=== PATIENT | male | born 1990 | race Caucasian/White ===

== ENCOUNTER 2021-02-26 18:12 | Emergency (ER) | payer OTHER, SELFPAY ==
[2021-02-26 18:33] VITALS: BP 133/89; PULSE 95; RESP 18; TEMP 36.6; O2SAT 99
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
--- NOTE | 2021-02-26 19:15 | PC.NURSE ---
[facility] here
== END 2021-02-26 19:27 | disposition short-term general hospital (02) ==
PROVIDERS: Emergency Provider Nurse Practitioner
DX: S39.91XA Unspecified injury of abdomen, initial encounter (principal); S79.911A Unspecified injury of right hip, initial encounter; F17.210 Nicotine dependence, cigarettes, uncomplicated; S20.411A Abrasion of right back wall of thorax, initial encounter; V86.56XA Driver of dirt bike or motor/cross bike injured in nontraffic accident, initial encounter
CPT/HCPCS: 99285; L0140

== ENCOUNTER 2021-10-04 18:37 | Emergency (ER) | payer OTHER, SELFPAY ==
--- NOTE | ~2021-10-04 | XR_ITS ---
EXAMINATION: XR shoulder LT min 2V INDICATION: Left shoulder pain, history of dislocation TECHNIQUE: Four views of the left shoulder are submitted. COMPARISON: None FINDINGS: Normal alignment. No acute fracture is identified. There is a chronic Hill-Sachs deformity in the posterolateral aspect of the humeral head. Also noted is chronic heterotopic ossification in t he subacromial/subdeltoid bursa. Glenohumeral and acromioclavicular joint spaces are normal. Soft tis sues are unremarkable. IMPRESSION: 1. No acute osseous abnormality. Reviewed, dictated and finalized at location F. 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
[2021-10-04 18:50] VITALS: BP 125/90; PULSE 108; RESP 17; TEMP 36.4; O2SAT 100
[2021-10-04] MEDS: HYDROcodone/acetaminophen (*CRX) 5-325 MG TABLET 1 TAB PO (19:05)
--- NOTE | 2021-10-04 19:29 | ED.GENADULT ---
HPI - General Adult General Chief complaint: Extremity Injury, Upper Stated complaint: dislocated my arm Time Seen by Provider: 10/04/21 18:47 Source: patient Mode of arrival: ambulatory Limitations: no limitations History of Present Illness HPI narrative: Patient is a 31-year-old male who presents with left shoulder dislocation notes history of dislocations patient notes aching pain of the left shoulder worse with activity and movement patient notes that he was wrestling with an individual when it occurred presents with obvious deformity notes moderate aching pain worse with activity and movement Related Data Home Medications Medication Instructions Recorded Confirmed No Home Medications 10/04/21 10/04/21 Allergies Allergy/AdvReac Type Severity Reaction Status Date / Time PEPTO BISMOL Allergy Unknown Unknown Uncoded 10/04/21 18:49 Review of Systems Review of Systems: CONSTITUTIONAL: Denies fever, chills, or sweats. CARDIOVASCULAR: Denies chest pain RESPIRATORY: Denies cough or dyspnea. GASTROINTESTINAL: Denies abdominal pain, nausea SKIN: Denies bruising or swelling MUSCULOSKELETAL: Denies back pain, joint pain, or myalgia. NEUROLOGIC: Denies headache, numbness, dizziness, or weakness. [facility] Surgical History Surgical History History of orthopedic surgery Family History Family History (Updated 02/26/21 @ 19:06 by Lindsay Lantigua, NEIGHBORHOOD WORKER) Other No significant family history Social History Social History Smoking status: Current every day smoker Tobacco type: cigarettes Alcohol intake: current Alcohol use details: occasional Substance use: never Gender identity (if verbalized by the patient): Male Exam Narrative: GENERAL: Well-appearing, well-nourished, and in no acute distress. HEAD: Normocephalic, atraumatic. EYES: PERRLA and EOMI. ENT: Nares clear, no rhinorrhea or epistaxis. Mucous membranes moist. Oropharynx without tonsillar hypertrophy exudate or other lesions. EXTREMITIES: Normal range of motion. No edema. SKIN: Warm, dry, no rash. NEURO: No focal deficits. Alert and oriented x3. Neurovascularly intact. Capillary refill less than 2 seconds PSYCH: Normal mood and affect. Course Course Emergency Course: Patient in the room aware of case findings treatment plan diagnosis shoulder was reduced x-rays were obtained he will be placed in a sling and sent back to primary care and orthopedic surgery for further evaluation ABCs and vital signs intact stable Vital Signs Vital signs: Vital Signs Temperature 97.5 F L 10/04/21 18:50 Pulse Rate 108 H 10/04/21 18:50 Respiratory Rate 17 10/04/21 18:50 Blood Pressure 125/90 10/04/21 18:50 Pulse Oximetry 100 10/04/21 18:50 Temperature 97.5 F L 10/04/21 18:50 Pulse Rate 108 H 10/04/21 18:50 Respiratory Rate 17 10/04/21 18:50 Blood Pressure 125/90 10/04/21 18:50 Pulse Oximetry 100 10/04/21 18:50 Procedures Orthopedic Joint Reduction Joint #1: Orthopedic Joint Reduction Date: 10/04/21 Orthopedic Joint Reduction Time: 19:34 Time Out Performed: Yes Side: left Joint Reduction Location: shoulder Analgesia: none Shoulder Technique Used (if applicable): Milch Technique used: direct manipulation Post-reduction neuro exam: intact Post-reduction vascular: intact Post Reduction X-Ray Obtained: Yes Post Reduction X-Ray Results: reduced Splint Applied: Yes Patient Tolerated Procedure: well Additional Comments: Patient placed in sling post procedure Medical Decision Making MDM Narrative Medical decision making narrative: Patients injury or pain is consistent with musculoskeletal etiology. No signs of neurological or vascular compromise on exam. Compartments and tisues are soft without signs of compartment syndrom
[2021-10-04 19:30] VITALS: BP 136/84; PULSE 84; RESP 14; O2SAT 98
== END 2021-10-04 19:35 | disposition home or self-care (01) ==
PROVIDERS: Emergency Provider Emergency Medicine
DX: M24.412 Recurrent dislocation, left shoulder (principal); F17.210 Nicotine dependence, cigarettes, uncomplicated
CPT/HCPCS: 23650; 73030; 99285; A4565; A9270

== ENCOUNTER 2024-05-15 10:36 | Emergency (ER) | payer OTHER, SELFPAY ==
[2024-05-15] VITALS (13 sets, daily range): BP systolic 109–121; BP diastolic 76–86; PULSE 59–79; RESP 13–22; TEMP 36.4–36.6; O2SAT 97–100
--- NOTE | 2024-05-15 11:01 | ECG_ITS ---
Test Date: 2024-05-15 11:03:18 Measurements Intervals [place] Rate: 71 P: 41 [place]: 182 QRS: 65 QRSD: 82 T: 37 QT: 350 QTc: 383 Interpretive Statements SINUS RHYTHM POSSIBLE RIGHT VENTRICULAR CONDUCTION DELAY [RSR (QR) IN V1/V2] NONSPECIFIC T-WAVE ABNORMALITY No previous ECG available for comparison Electronically Signed On 05-16-2024 10:32:22 CDT by Ana Dubose M.D.
[2024-05-15 12:44] LABS: Basophils Absolute Auto 0.1 K/mm3 (0.0-0.1); Basophils Percent Auto 0.8 % (0.2-1.2); Eosinophils Absolute Auto 0.2 K/mm3 (0-0.3); Eosinophils Percent Auto 2.1 % (0-4.4); Hematocrit 48.7 % (42.0-52.0); Immature Granulocyte Absolute 0.03 K/mm3 (0.00-0.031); Immature Granulocyte Percent A 0.3 % (0-0.5); Lymphocytes Absolute Auto 3.12 K/mm3 (0.9-3.2); Lymphocytes Percent Auto 30.5 % (18.3-44.2); Mean Corpuscular HGB Conc 34.9 g/dl (32-36); Mean Corpuscular Volume 88.7 fl (80-100); Mean Platelet Volume 10.3 fl (7.4-10.4); Monocytes Absolute Auto 0.7 K/mm3 (0.1-0.6); Monocytes Percent Auto 7.2 % (2.6-8.5); Neutrophils Absolute Auto 6.1 K/mm3 (1.3-6.7); Neutrophils Percent Auto 59.1 % (45.5-73.1); Platelet Count Result 271 k/mm3 (150-375); Red Blood Count 5.49 M/mm3 (4.6-6.20); Red Cell Distribution Width 12.3 % (11.5-14.5); White Blood Count 10.2 K/mm3 (4.5-10.0)
[2024-05-15] MEDS: MECLIZINE HCL 25 MG TABLET PO (12:46)
[2024-05-15] MEDS: SODIUM CHLORIDE 0.9% IV 1,000 ML 999 ML IV CONT (12:47)
[2024-05-15 13:07] LABS: Alanine Aminotransferase 27 U/L (6-50); Albumin Level 4.4 g/dL (3.5-5.1); Alkaline Phosphatase 71 U/L (38-126); Anion Gap 9 mmol/L (4-12); Aspartate Amino Transferase 24 U/L (17-59); Bilirubin,Total 0.4 mg/dL (0.2-1.3); Blood Urea Nitrogen 8 mg/dL (9-20); Calcium 9.1 mg/dL (8.4-10.2); Carbon Dioxide 26 mmol/L (22-30); Chloride 103 mmol/L (98-107); Estimated CRCL calculation 90 ml/min; Estimated Glomerular Filt Rate > 60; Glucose 89 mg/dL (65-110); Potassium 3.9 mmol/L (3.4-5.0); Sodium 138 mmol/L (137-145)
--- NOTE | 2024-05-15 14:09 | ED.GENADULT ---
HPI - General Adult General Chief complaint: Dizziness Stated complaint: dizziness Time Seen by Provider: 05/15/24 12:02 History of Present Illness HPI narrative: Patient is a 34-year-old male who presents ER with dizziness. Began this morning. Spinning in nature. Worse with laying flat. Give some balance issues with walking and when turning his head. He also has had some mild nausea. He has had similar symptoms in the past. Denies arm or leg weakness. No numbness. Symptoms are better with sitting still. Related Data Allergies Allergy/AdvReac Type Severity Reaction Status Date / Time PEPTO BISMOL Allergy Unknown Unknown Uncoded 10/04/21 18:49 Review of Systems Review of Systems: All systems reviewed & are unremarkable except as noted in HPI and below Constitutional: Constitutional: Reports no additional constitutional complaints ENT: Reports dizziness and Denies nasal congestion Cardiovascular: Cardiovascular: Reports no additional cardiovascular complaints Respiratory: Respiratory: Reports no additional respiratory complaints Gastrointestinal: Gastrointestinal: Reports no additional gastrointestinal complaints [facility] Past Medical History Medical History (Updated 05/15/24 @ 14:13 by John Moura MD) Healthy adult male Surgical History Surgical History History of orthopedic surgery Family History Family History (Updated 02/26/21 @ 19:06 by Lindsay Lantigua, CONING MACHINE OPERATOR) Other No significant family history Social History Social History Smoking status: Current every day smoker Tobacco type: cigarettes Alcohol intake: current Alcohol use details: occasional Substance use: never Living arrangements: with family Occupation/Education: occupation Gender identity (if verbalized by the patient): Male Exam Narrative: GENERAL: Well-appearing, well-nourished, and in no acute distress. HEAD: Normocephalic, atraumatic. ENT: Mucous membranes moist. TMs normal bilaterally CHEST: Clear to auscultation. No respiratory distress. HEART: Regular rate and rhythm. Normal peripheral pulses. EXTREMITIES: Normal range of motion. No edema. SKIN: Warm, dry, no rash. NEURO: Alert and oriented x3. PSYCH: Normal mood and affect. Course Course Emergency Course: patient resting comfortably. Informed of lab results. Dizziness improved with meclizine and IV fluids. Appropriate for discharge home. discussed diagnosis and treatment time. Vital Signs Vital signs: Vital Signs Temperature 97.6 F 05/15/24 10:38 Pulse Rate 79 05/15/24 10:38 Respiratory Rate 14 05/15/24 10:38 Blood Pressure 121/77 05/15/24 10:38 Pulse Oximetry 99 05/15/24 10:38 Oxygen Delivery Room Air 05/15/24 10:38 Temperature 97.9 F 05/15/24 12:02 Pulse Rate 70 05/15/24 12:31 Respiratory Rate 14 05/15/24 12:02 Blood Pressure 117/82 05/15/24 12:31 Pulse Oximetry 100 05/15/24 12:02 Oxygen Delivery Room Air 05/15/24 12:02 Medical Decision Making Vital Signs Vital Signs: Vital Signs Temperature 97.6 F 05/15/24 10:38 Pulse Rate 79 05/15/24 10:38 Respiratory Rate 14 05/15/24 10:38 Blood Pressure 121/77 05/15/24 10:38 Pulse Oximetry 99 05/15/24 10:38 Oxygen Delivery Room Air 05/15/24 10:38 Temperature 97.9 F 05/15/24 12:02 Pulse Rate 70 05/15/24 12:31 Respiratory Rate 14 05/15/24 12:02 Blood Pressure 117/82 05/15/24 12:31 Pulse Oximetry 100 05/15/24 12:02 Oxygen Delivery Room Air 05/15/24 12:02 Lab Data 05/15/24 12:36 05/15/24 12:36 Labs: Lab Results 05/15/24 Range/Units 12:36 WBC 10.2 H (4.5-10.0) K/mm3 RBC 5.49 (4.6-6.20) M/mm3 Hgb 17.0 (14.0-18.0) g/dL Hct 48.7 (42.0-52.0) % MCV 88.7 (80-100) fl MCH 31.0 (26-34) pg MCHC 34.9 (32-36) g/dl
== END 2024-05-15 14:29 | disposition home or self-care (01) ==
PROVIDERS: Emergency Provider Emergency Medicine
DX: R42 Dizziness and giddiness (principal); F17.210 Nicotine dependence, cigarettes, uncomplicated
CPT/HCPCS: 36415; 80053; 85025; 93005; 96360; 99283; A9270; J7030

== ENCOUNTER 2024-05-22 04:23 | Emergency (ER) | payer OTHER, SELFPAY ==
[2024-05-22 04:27] VITALS: BP 137/92; PULSE 75; RESP 15; TEMP 37.1; O2SAT 100
[2024-05-22] MEDS: ALPRAZolam (*CRX) 0.5 MG TABLET PO (05:57)
--- NOTE | 2024-05-22 05:57 | ED.ANXIETY ---
HPI - Anxiety General Chief Complaint: Anxiety Stated Complaint: anxiety Time Seen by Provider: 05/22/24 04:30 History of Present Illness HPI narrative: Patient is a 34-year-old male who presents to the emergency department this evening complaining of difficulty catching his breath and feeling as though he is having a panic attack. Patient admits that he does have a history of anxiety and panic attacks but has not been taking any medications for them. Patient states that they used to be in frequent, happening approximately once or twice a year max but since his father approximately 1 month ago he has noticed that he has been having these episodes frequently. Patient states that his father also suffered from anxiety and 1 point did give him a Xanax because he was having severe anxiety/panic attack and patient states that has helped him. Denies ever being on any additional medications for anxiety or depression. Patient admits that he has kids at home that are sick with some upper respiratory virus and believes that this could be contributing to his symptoms. Denies any chest pain, any fevers or chills, any URI symptoms including cough, runny nose, or sore throat. No additional symptoms or concerns at this time. Related Data Allergies Allergy/AdvReac Type Severity Reaction Status Date / Time PEPTO BISMOL Allergy Unknown Unknown Uncoded 10/04/21 18:49 Review of Systems Review of Systems: All systems are reviewed and are negative unless stated otherwise in the HPI. [facility] Past Medical History Medical History Healthy adult male Surgical History Surgical History History of orthopedic surgery Family History Family History Other No significant family history Social History Social History Smoking status: Current every day smoker Tobacco type: cigarettes Alcohol intake: current Alcohol use details: occasional Substance use: never Living arrangements: with family Occupation/Education: occupation Gender identity (if verbalized by the patient): Male Exam Narrative: General: Alert, awake, afebrile, anxious. HEENT: PERRL, no rhinorrhea, no post nasal drip, oropharynx clear. Cardiovascular: Regular rate and rhythm, no murmurs, rubs or gallops, no peripheral edema. Respiratory: Clear to auscultation bilaterally, no tachypnea, no wheezing, no rhonchi, no rubs, no respiratory distress. Abdomen: Soft, nontender, nondistended, no rebound, no guarding, no peritoneal signs. Musculoskeletal: No joint swelling or deformity, normal muscle tone. Skin: No rashes or petechia, no signs of infection. Psychiatric: Very anxious, normal behavior and judgment for situation. Neurological: Alert and oriented to person, place, and time. Follows all commands. No focal deficits, speech is clear and fluent. Course Vital Signs Vital signs: Vital Signs Temperature 98.7 F 05/22/24 04:27 Pulse Rate 75 05/22/24 04:27 Respiratory Rate 15 05/22/24 04:27 Blood Pressure 137/92 H 05/22/24 04:27 Pulse Oximetry 100 05/22/24 04:27 Oxygen Delivery Room Air 05/22/24 04:27 Temperature 98.7 F 05/22/24 04:27 Pulse Rate 77 05/22/24 05:58 Respiratory Rate 20 05/22/24 05:58 Blood Pressure 119/78 05/22/24 05:58 Pulse Oximetry 98 05/22/24 05:58 Oxygen Delivery Room Air 05/22/24 04:27 MDM - Anxiety MDM Narrative Medical decision making narrative: The patient was evaluated by myself in the emergency department. History is obtained from patient who is an independent historian and physical exam was performed. External medical records were reviewed at this time. Vital signs were reviewed and patient was noted to be satting 100% on room air. Patient was administered an
[2024-05-22 05:58] VITALS: BP 119/78; PULSE 77; RESP 20; O2SAT 98
== END 2024-05-22 05:57 | disposition home or self-care (01) ==
PROVIDERS: Emergency Provider Emergency Medicine
DX: F41.0 Panic disorder [episodic paroxysmal anxiety] (principal); F17.210 Nicotine dependence, cigarettes, uncomplicated
CPT/HCPCS: 99283; A9270

== ENCOUNTER 2024-11-24 04:09 | Emergency (ER) | payer OTHER, SELFPAY ==
[2024-11-24 04:10] VITALS: BP 150/93; PULSE 87; RESP 16; TEMP 36.7; O2SAT 100
--- OUTSIDE RECORDS SUMMARY | 2024-11-24 04:11 | XMS_ITS | Patient Health Summary ---
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 lumbar spine were obtained by the technologist from a concurrently performed body CT and sent to the workstation for review. COMPARISON: No prior study is available for comparison at the time of this dictation. FINDINGS: Head: No acute intra- or extra-axial fluid collections are identified. The ventricles are of normal size, shape, and morphology. The basilar cisterns are patent. No mass effect or midline shift is seen. The paul-white matter differentiation is normal. No acute calvarial fracture is identified.. The orbits appear normal. There is mild paranasal sinus disease. There are ryan bullosa of the middle turbinates bilaterally. The nasal septum is deviated to the right. There are dental caries and periapical lucencies, partially imaged. The mastoid air cells are clear. Minimal irregularity along the right parietal scalp. Cervical spine: The alignment is maintained. Vertebral bodies are normal in height without evidence of acute fracture. The craniocervical junction is normal. There is mild degenerative disc disease. Disc osteophyte complexes are seen at multiple levels, worse at C5-C6 and C6-C7. No significant central canal stenosis is seen. The facets appear normal. There are varying degrees of mild uncovertebral joint osteoarthritis No significant neural foraminal stenosis is seen. There is paraseptal emphysema in the lung apices. Thoracic spine: The alignment is maintained. Vertebral bodies are normal in height without evidence of acute fracture. The intervertebral discs appear normal. No central canal stenosis is seen. The facets appear normal. No neural foraminal stenosis is seen. No soft tissue abnormality is identified. Lumbar spine: The alignment is maintained. Vertebral bodies are normal in height without evidence of acute fracture. There is minimal diffuse disc bulge at multiple levels. No central canal stenosis is seen. The facets appear normal. No neural foraminal stenosis is seen. No soft tissue abnormality is identified. Procedure Note Darwin Tyler MD - 02/27/2021 CT HEAD WO CONTRAST, CT LUMBAR SPINE WO CONTRAST, CT THORACIC SPINE WO CONTRAST, CT CERVICAL SPINE WO CONTRAST DATE: 02/26/2021 8:35 PM EXAMINATION: 1.Computed tomography (CT) of the head without contrast 2.CT of the cervical spine without contrast 3.CT of the thoracic spine without contrast 4.CT of the lumbar spine without contrast HISTORY: Trauma TECHNIQUE: CT of the head and cervical spine was performed without contrast according to standard protocol. Reformatted axial, sagittal,and coronal images of the thoracic and lumbar spine were obtained by the technologist from a concurrently performed body CT and sent to the workstation for review. COMPARISON: No prior study is available for comparison at the time ofthis dictation. FINDINGS: Head: No acute intra- or extra-axial fluid collections are identified. The ventricles are of normal size, shape, and morphology. The basilarcisterns are patent. No mass effect or midline shift is seen. The paul-whitematter differentiation is normal. No acute calvarial fracture is identified..The orbits appear normal. There is mild paranasal sinus disease. There are ryan bullosa of the middle turbinates bilaterally. The nasal septum is deviated to the right. There are dental caries and periapical lucencies, partially imaged. The mastoid air cells are clear. Minimal irregularity along the right parietal scalp. Cervical spine: The alignment is maintained. Vertebral bodies are normal in heightwithout evidence of acute fracture. The craniocervical junction is normal. There is mild degenerative disc disease. Disc osteophyte complexes are seen at multiple levels, worse at C5-C6 and C6-C7. No significant central canal stenosis is seen. The facets appear normal. There are varying degrees of mild uncovertebral joint osteoarthritis No significant neural foraminal stenosis is seen. There is paraseptal emphysema in the lung apices. Thoracic spine: The alignment is maintained. Vertebral bodies are normal in heightwithout evidence of acute fracture. The intervertebral discs appear normal. No central canal stenosis is seen. The facets appear normal. No neural foraminal stenosis is seen. No soft tissue abnormality is identified. Lumbar spine: The alignment is maintained. Vertebral bodies are normal in heightwithout evidence of acute fracture. There is minimal diffuse disc bulge at multiple levels. No central canal stenosis is seen. The facets appear normal. No neural foraminal stenosis is seen. No soft tissue abnormality is identified. IMPRESSION: 1.No acute intracranial hemorrhage, mass effect, or midline shift. 2.No evidence of acute fracture in the cervical, thoracic, or lumbarspine. This report was electronically signed by DARWIN TYLER on02/27/2021 7:52 AM . He Cho MD CT ORDERABLES * CT CERVICAL SPINE WO CONTRAST - C-Spine Trauma, Spine fracture (02/26/2021 8:34 PM CDT) Anatomical Region Laterality Modality Spine Computed Tomogra phy 02/27/2021 7:44 AM CDT Impressions 02/27/2021 7:52 AM CDT IMPRESSION: 1.No acute intracranial hemorrhage, mass effect, or midline shift. 2.No evidence of acute fracture in the cervical, thoracic, or lumbar spine. This report was electronically signed by DARWIN TYLER on 02/27/2021 7:52 AM . Narrative 02/27/2021 7:[address] HEAD WO CONTRAST, CT LUMBAR SPINE WO CONTRAST, CT THORACIC SPINE WO CONTRAST, CT CERVICAL SPINE WO CONTRAST DATE: 02/26/2021 8:35 PM EXAMINATION: 1.Computed tomography (CT) of the head without contrast 2.CT of the cervical spine without contrast 3.CT of the thoracic spine without contrast 4.CT of the lumbar spine without contrast HISTORY: Trauma TECHNIQUE: CT of the head and cervical spine was performed without contrast according to standard protocol. Reformatted axial, sagittal, and coronal images of the thoracic and lumbar spine were obtained by the technologist from a concurrently performed body CT and sent to the workstation for review. COMPARISON: No prior study is available for comparison at the time of this dictation. FINDINGS: Head: No acute intra- or extra-axial fluid collections are identified. The ventricles are of normal size, shape, and morphology. The basilar cisterns are patent. No mass effect or midline shift is seen. The paul-white matter differentiation is normal. No acute calvarial fracture is identified.. The orbits appear normal. There is mild paranasal sinus disease. There are ryan bullosa of the middle turbinates bilaterally. The nasal septum is deviated to the right. There are dental caries and periapical lucencies, partially imaged. The mastoid air cells are clear. Minimal irregularity along the right parietal scalp. Cervical spine: The alignment is maintained. Vertebral bodies are normal in height without evidence of acute fracture. The craniocervical junction is normal. There is mild degenerative disc disease. Disc osteophyte complexes are seen at multiple levels, worse at C5-C6 and C6-C7. No significant central canal stenosis is seen. The facets appear normal. There are varying degrees of mild uncovertebral joint osteoarthritis No significant neural foraminal stenosis is seen. There is paraseptal emphysema in the lung apices. Thoracic spine: The alignment is maintained. Vertebral bodies are normal in height without evidence of acute fracture. The intervertebral discs appear normal. No central canal stenosis is seen. The facets appear normal. No neural foraminal stenosis is seen. No soft tissue abnormality is identified. Lumbar spine: The alignment is maintained. Vertebral bodies are normal in height without evidence of acute fracture. There is minimal diffuse disc bulge at multiple levels. No central canal stenosis is seen. The facets appear normal. No neural foraminal stenosis is seen. No soft tissue abnormality is identified. Procedure Note Darwin Tyler MD - 02/27/2021 CT HEAD WO CONTRAST, CT LUMBAR SPINE WO CONTRAST, CT THORACIC SPINE WO CONTRAST, CT CERVICAL SPINE WO CONTRAST DATE: 02/26/2021 8:35 PM EXAMINATION: 1.Computed tomography (CT) of the head without contrast 2.CT of the cervical spine without contrast 3.CT of the thoracic spine without contrast 4.CT of the lumbar spine without contrast HISTORY: Trauma TECHNIQUE: CT of the head and cervical spine was performed without contrast according to standard protocol. Reformatted axial, sagittal,and coronal images of the thoracic and lumbar spine were obtained by the technologist from a concurrently performed body CT and sent to the workstation for review. COMPARISON: No prior study is available for comparison at the time ofthis dictation. FINDINGS: Head: No acute intra- or extra-axial fluid collections are identified. The ventricles are of normal size, shape, and morphology. The basilarcisterns are patent. No mass effect or midline shift is seen. The paul-whitematter differentiation is normal. No acute calvarial fracture is identified..The orbits appear normal. There is mild paranasal sinus disease. There are ryan bullosa of the middle turbinates bilaterally. The nasal septum is deviated to the right. There are dental caries and periapical lucencies, partially imaged. The mastoid air cells are clear. Minimal irregularity along the right parietal scalp. Cervical spine: The alignment is maintained. Vertebral bodies are normal in heightwithout evidence of acute fracture. The craniocervical junction is normal. There is mild degenerative disc disease. Disc osteophyte complexes are seen at multiple levels, worse at C5-C6 and C6-C7. No significant central canal stenosis is seen. The facets appear normal. There are varying degrees of mild uncovertebral joint osteoarthritis No significant neural foraminal stenosis is seen. There is paraseptal emphysema in the lung apices. Thoracic spine: The alignment is maintained. Vertebral bodies are normal in heightwithout evidence of acute fracture. The intervertebral discs appear normal. No central canal stenosis is seen. The facets appear normal. No neural foraminal stenosis is seen. No soft tissue abnormality is identified. Lumbar spine: The alignment is maintained. Vertebral bodies are normal in heightwithout evidence of acute fracture. There is minimal diffuse disc bulge at multiple levels. No central canal stenosis is seen. The facets appear normal. No neural foraminal stenosis is seen. No soft tissue abnormality is identified. IMPRESSION: 1.No acute intracranial hemorrhage, mass effect, or midline shift. 2.No evidence of acute fracture in the cervical, thoracic, or lumbarspine. This report was electronically signed by DARWIN TYLER on02/27/2021 7:52 AM . He Cho MD CT ORDERABLES * CT HEAD WO CONTRAST - Head Trauma, CSF leak, mental status changes (02/26/2021 8:34 PM CDT) Anatomical Region Laterality Modality Head Computed Tomogra phy 02/27/2021 7:44 AM CDT Impressions 02/27/2021 7:52 AM CDT IMPRESSION: 1.No acute intracranial hemorrhage, mass effect, or midline shift. 2.No evidence of acute fracture in the cervical, thoracic, or lumbar spine. This report was electronically signed by DARWIN TYLER on 02/27/2021 7:52 AM . Narrative 02/27/2021 7:[address] HEAD WO CONTRAST, CT LUMBAR SPINE WO CONTRAST, CT THORACIC SPINE WO CONTRAST, CT CERVICAL SPINE WO CONTRAST DATE: 02/26/2021 8:35 PM EXAMINATION: 1.Computed tomography (CT) of the head without contrast 2.CT of the cervical spine without contrast 3.CT of the thoracic spine without contrast 4.CT of the lumbar spine without contrast HISTORY: Trauma TECHNIQUE: CT of the head and cervical spine was performed without contrast according to standard protocol. Reformatted axial, sagittal, and coronal images of the thoracic and lumbar spine were obtained by the technologist from a concurrently performed body CT and sent to the workstation for review. COMPARISON: No prior study is available for comparison at the time of this dictation. FINDINGS: Head: No acute intra- or extra-axial fluid collections are identified. The ventricles are of normal size, shape, and morphology. The basilar cisterns are patent. No mass effect or midline shift is seen. The paul-white matter differentiation is normal. No acute calvarial fracture is identified.. The orbits appear normal. There is mild paranasal sinus disease. There are ryan bullosa of the middle turbinates bilaterally. The nasal septum is deviated to the right. There are dental caries and periapical lucencies, partially imaged. The mastoid air cells are clear. Minimal irregularity along the right parietal scalp. Cervical spine: The alignment is maintained. Vertebral bodies are normal in height without evidence of acute fracture. The craniocervical junction is normal. There is mild degenerative disc disease. Disc osteophyte complexes are seen at multiple levels, worse at C5-C6 and C6-C7. No significant central canal stenosis is seen. The facets appear normal. There are varying degrees of mild uncovertebral joint osteoarthritis No significant neural foraminal stenosis is seen. There is paraseptal emphysema in the lung apices. Thoracic spine: The alignment is maintained. Vertebral bodies are normal in height without evidence of acute fracture. The intervertebral discs appear normal. No central canal stenosis is seen. The facets appear normal. No neural foraminal stenosis is seen. No soft tissue abnormality is identified. Lumbar spine: The alignment is maintained. Vertebral bodies are normal in height without evidence of acute fracture. There is minimal diffuse disc bulge at multiple levels. No central canal stenosis is seen. The facets appear normal. No neural foraminal stenosis is seen. No soft tissue abnormality is identified. Procedure Note Darwin Tyler MD - 02/27/2021 CT HEAD WO CONTRAST, CT LUMBAR SPINE WO CONTRAST, CT THORACIC SPINE WO CONTRAST, CT CERVICAL SPINE WO CONTRAST DATE: 02/26/2021 8:35 PM EXAMINATION: 1.Computed tomography (CT) of the head without contrast 2.CT of the cervical spine without contrast 3.CT of the thoracic spine without contrast 4.CT of the lumbar spine without contrast HISTORY: Trauma TECHNIQUE: CT of the head and cervical spine was performed without contrast according to standard protocol. Reformatted axial, sagittal,and coronal images of the thoracic and lumbar spine were obtained by the technologist from a concurrently performed body CT and sent to the workstation for review. COMPARISON: No prior study is available for comparison at the time ofthis dictation. FINDINGS: Head: No acute intra- or extra-axial fluid collections are identified. The ventricles are of normal size, shape, and morphology. The basilarcisterns are patent. No mass effect or midline shift is seen. The paul-whitematter differentiation is normal. No acute calvarial fracture is identified..The orbits appear normal. There is mild paranasal sinus disease. There are ryan bullosa of the middle turbinates bilaterally. The nasal septum is deviated to the right. There are dental caries and periapical lucencies, partially imaged. The mastoid air cells are clear. Minimal irregularity along the right parietal scalp. Cervical spine: The alignment is maintained. Vertebral bodies are normal in heightwithout evidence of acute fracture. The craniocervical junction is normal. There is mild degenerative disc disease. Disc osteophyte complexes are seen at multiple levels, worse at C5-C6 and C6-C7. No significant central canal stenosis is seen. The facets appear normal. There are varying degrees of mild uncovertebral joint osteoarthritis No significant neural foraminal stenosis is seen. There is paraseptal emphysema in the lung apices. Thoracic spine: The alignment is maintained. Vertebral bodies are normal in heightwithout evidence of acute fracture. The intervertebral discs appear normal. No central canal stenosis is seen. The facets appear normal. No neural foraminal stenosis is seen. No soft tissue abnormality is identified. Lumbar spine: The alignment is maintained. Vertebral bodies are normal in heightwithout evidence of acute fracture. There is minimal diffuse disc bulge at multiple levels. No central canal stenosis is seen. The facets appear normal. No neural foraminal stenosis is seen. No soft tissue abnormality is identified. IMPRESSION: 1.No acute intracranial hemorrhage, mass effect, or midline shift. 2.No evidence of acute fracture in the cervical, thoracic, or lumbarspine. This report was electronically signed by DARWIN TYLER on02/27/2021 7:52 AM . He Cho MD CT ORDERABLES * XR PELVIS 1 OR 2VW (02/26/2021 8:07 PM CDT) Anatomical Region Laterality Modality Pelvis Radiographic Heather ging 02/27/2021 7:51 AM CDT Impressions 02/27/2021 10:33 AM CDT IMPRESSION: No acute fracture or dislocation identified. Benign-appearing lesion in the right ischium. Dictated by Min Mcdermott MD (vice president and portfolio manager). Dr. COLLEEN Rosas M.D. have personally reviewed and interpreted this examination/study. This report was electronically signed by COLLEEN FREIRE M.D. on 02/27/2021 10:33 AM . Narrative 02/27/2021 10:33 AM CDT EXAMINATION: XR PELVIS 1 OR 2VW HISTORY: Trauma Fracture suspected COMPARISON: No prior study is available for comparison. FINDINGS: No acute fracture is identified. Lytic/sclerotic lesion within the right ischium, further delineated on concurrent CT. The bilateral hip joint spaces are preserved. The pubic symphysis is intact. The osseous architecture and density are normal. The sacroiliac joints are normal. Procedure Note Colleen Freire MD - 02/27/2021 EXAMINATION: XR PELVIS 1 OR 2VW HISTORY: Trauma Fracture suspected COMPARISON: No prior study is available for comparison. FINDINGS: No acute fracture is identified. Lytic/sclerotic lesion within the right ischium, further delineated on concurrent CT. The bilateral hip joint spaces are preserved. The pubic symphysis is intact. The osseous architecture and density are normal. The sacroiliac joints are normal. IMPRESSION: No acute fracture or dislocation identified. Benign-appearing lesion in the right ischium. Dictated by Min Mcdermott MD (vice president and portfolio manager). Dr. COLLEEN Rosas M.D. have personally reviewed and interpreted this examination/study. This report was electronically signed by COLLEEN FREIRE M.D. on 02/27/2021 10:33 AM . He Cho MD DIAGNOSTIC IM AGING ORDERABLES * TYPE + SCREEN PANEL (02/26/2021 8:05 PM CDT) Antibody Screen NEG 9:33 PM CDT [facility] ABO Rh O POS 02/26/2021 9:33 PM CDT [facility] Blood Bank BLOOD SPECIMEN / Unknown Venipuncture / Unknown 02/26/2021 8:05 PM CDT 02/26/2021 8:46 PM CDT He Cho MD LAB - BLOOD B ANK ORDERABLES [facility] [address] [place] [address], [facility] [phone] * XR CHEST 1VW PORTABLE (02/26/2021 8:05 PM CDT) Anatomical Region Laterality Modality Chest Radiographic Heather ging 02/27/2021 7:52 AM CDT Impressions 02/27/2021 10:29 AM CDT FINDINGS/IMPRESSION: There is no focal consolidation, pleural effusion, or pneumothorax. The cardiomediastinal silhouette is normal. The visible bony thorax is intact. Dictated by Min Mcdermott MD (vice president and portfolio manager). Dr. COLLEEN Rosas M.D. have personally reviewed and interpreted this examination/study. This report was electronically signed by COLLEEN FREIRE M.D. on 02/27/2021 10:29 AM . Narrative 02/27/2021 10:29 AM CDT EXAMINATION: XR CHEST 1VW PORTABLE HISTORY: Trauma COMPARISON: No prior study is available for comparison. Procedure Note Colleen Freire MD - 02/27/2021 EXAMINATION: XR CHEST 1VW PORTABLE HISTORY: Trauma COMPARISON: No prior study is available for comparison. FINDINGS/IMPRESSION: There is no focal consolidation, pleural effusion, or pneumothorax. The cardiomediastinal silhouette is normal. The visible bony thorax isintact. Dictated by Min Mcdermott MD (vice president and portfolio manager). Dr. COLLEEN Rosas M.D. have personally reviewed and interpreted this examination/study. This report was electronically signed by COLLEEN FREIRE M.D. on 02/27/2021 10:29 AM . He Cho MD DIAGNOSTIC IM AGING ORDERABLES
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
[2024-11-24] MEDS: diazePAM (*CRX) 5 MG TABLET PO (04:42)
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
--- NOTE | 2024-11-24 05:02 | ED_ITS ---
HPI - General Adult General Chief complaint: Anxiety Stated complaint: Extreme panic attack Time Seen by Provider: 11/24/24 04:25 History of Present Illness HPI narrative: Patient is a 34-year-old gentleman presents emergency department with chief complaint of extreme anxiety. Patient reports he has prior history of anxiety reports he has been unable to calm down this evening patient states feels very shaky patient denies suicidal or homicidal ideation. Related Data Allergies Allergy/AdvReac Type Severity Reaction Status Date / Time PEPTO BISMOL Allergy Unknown Unknown Uncoded 11/24/24 04:09 Review of Systems Review of Systems: A 10 system review of systems was completed on the patient and is negative except for what is stated in the HPI. Nursing and ancillary documentation was reviewed. [facility] Past Medical History Medical History Healthy adult male Surgical History Surgical History History of orthopedic surgery Family History Family History Other No significant family history Social History Social History Smoking status: Current every day smoker Tobacco type: cigarettes Alcohol intake: current Alcohol use details: occasional Substance use: never Substance use type: does not use Living arrangements: with family Occupation/Education: occupation Gender identity (if verbalized by the patient): Male Exam Narrative: GENERAL: Well-appearing, well-nourished, and in no acute distress. HEAD: Normocephalic, atraumatic. EYES: PERRLA and EOMI. ENT: Nares clear, no rhinorrhea or epistaxis. Mucous membranes moist. NECK: Supple. CHEST: Clear to auscultation. No respiratory distress. HEART: Regular rate and rhythm. No murmur heard. Normal peripheral pulses. ABDOMEN: Soft, nontender, nondistended, normal active bowel sounds. EXTREMITIES: Normal range of motion. No edema. SKIN: Warm, dry, no rash. NEURO: No focal deficits. Alert and oriented x3. PSYCH: Anxious affect Course Vital Signs Vital signs: Vital Signs Temperature 36.7 C 11/24/24 04:10 Pulse Rate 87 11/24/24 04:10 Respiratory Rate 16 11/24/24 04:10 Blood Pressure 150/93 H 11/24/24 04:10 Pulse Oximetry 100 11/24/24 04:10 Oxygen Delivery Room Air 11/24/24 04:10 Temperature 36.7 C 11/24/24 04:10 Pulse Rate 87 11/24/24 04:10 Respiratory Rate 16 11/24/24 04:10 Blood Pressure 150/93 H 11/24/24 04:10 Pulse Oximetry 100 11/24/24 04:10 Oxygen Delivery Room Air 11/24/24 04:10 Medical Decision Making MDM Narrative Medical decision making narrative: The patient's vital signs are within normal limits. Patient shows no signs infection no signs of trauma patient given a dose of benzodiazepine a department will be referred to [facility]. Vital Signs Vital Signs: Vital Signs Temperature 36.7 C 11/24/24 04:10 Pulse Rate 87 11/24/24 04:10 Respiratory Rate 16 11/24/24 04:10 Blood Pressure 150/93 H 11/24/24 04:10 Pulse Oximetry 100 11/24/24 04:10 Oxygen Delivery Room Air 11/24/24 04:10 Temperature 36.7 C 11/24/24 04:10 Pulse Rate 87 11/24/24 04:10 Respiratory Rate 16 11/24/24 04:10 Blood Pressure 150/93 H 11/24/24 04:10 Pulse Oximetry 100 11/24/24 04:10 Oxygen Delivery Room Air 11/24/24 04:10 Discharge Plan Discharge Clinical Impression: Anxiety Patient Disposition: Home, Self-Care Condition: Stable Instructions: Antibiotic Form, Anxiety (ED) Patient Language: Korean Prescriptions: No Action meclizine 12.5 mg tablet 12.5 mg PO TID PRN (Reason: dizziness) Qty: 14 0RF alprazolam [Xanax] 0.5 mg tablet 0.5 mg PO BID PRN (Reason: anxiety) Qty: 7 0RF Follow-up/Referrals: [facility] [Outside] Quoc Mitchell MD [Physician] - PHYSICIAN,SENIOR RESEARCH CONSULTANT [Primary Care Provider] - Time of Disposition: 05:03
[2024-11-24 05:16] VITALS: BP 138/76; PULSE 68; RESP 16; O2SAT 98
== END 2024-11-24 05:17 | disposition home or self-care (01) ==
PROVIDERS: Emergency Provider Emergency Medicine
DX: F41.9 Anxiety disorder, unspecified (principal); F17.210 Nicotine dependence, cigarettes, uncomplicated
CPT/HCPCS: 99283; A9270

== ENCOUNTER 2025-01-18 19:26 | Emergency (ER) | payer OTHER, SELFPAY ==
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
[2025-01-18 19:44] VITALS: BP 119/86; PULSE 89; RESP 18; TEMP 36.7; O2SAT 98
--- NOTE | 2025-01-18 21:38 | PCCCNOTE ---
Called patient for xray at 2100 hrs; no answer
--- NOTE | 2025-01-18 21:54 | PC.NURSE ---
radiology calls patient 3 separate times of chest xray with no answer. pt leaves ED without notifying front end developer designer staff.
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
== END 2025-01-18 21:53 | disposition left against medical advice (07) ==
DX: R42 Dizziness and giddiness (principal)
CPT/HCPCS: 99199

== ENCOUNTER 2025-06-30 14:27 | Emergency (ER) | payer OTHER, SELFPAY ==
--- NOTE | ~2025-06-30 | XR_ITS ---
EXAMINATION: XR hand LT min 3V, 06/30/2025 15:21 CDT HISTORY: pain COMPARISON: No comparisons available. Findings: No acute fracture or malalignment. No significant degenerative changes. Soft tissues unremarkable. Impression: No acute fracture or malalignment. Reviewed, dictated and finalized at location P. Impression: No acute fracture or malalignment.
[2025-06-30 14:36] VITALS: BP 140/95; PULSE 78; TEMP 36.8; O2SAT 100
[2025-06-30] MEDS: HYDROcodone/acetaminophen (*CRX) 5-325 MG TABLET 1 TAB PO (15:32)
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
[2025-06-30] MEDS: TETANUS,DIPHTHERIA,AC PERTUSSIS ADULT (0.5 ML) BOOSTRIX IM (16:05)
[2025-06-30] MEDS: CEPHALEXIN 500 MG CAPSULE PO (17:45)
== END 2025-06-30 17:53 | disposition home or self-care (01) ==
PROVIDERS: Emergency Provider Nurse Practitioner Family
DX: S61.211A Laceration without foreign body of left index finger without damage to nail, initial encounter (principal); S61.213A Laceration without foreign body of left middle finger without damage to nail, initial encounter; W29.8XXA Contact with other powered hand tools and household machinery, initial encounter; F17.210 Nicotine dependence, cigarettes, uncomplicated; Z23 Encounter for immunization
CPT/HCPCS: 12002; 73130; 90471; 90715; 99283; A9270